=== PATIENT | female | born 1985 | race Two or more races ===

== ENCOUNTER 2021-07-13 06:17 | Emergency (ER) | payer MEDICAID ==
[~2021-07-13] VITALS: Ht 172.7 cm; Wt 54.5 kg
[2021-07-13 07:04] LABS: BASOPHILS % (AUTO) 1.3 % (0.0-2.0); EOSINOPHILS % (AUTO) 2.6 % (1.0-6.0); HEMATOCRIT 41.3 % (36-46); HEMOGLOBIN 13.7 g/dL (12.0-16.0); LYMPHOCYTES # (AUTO) 1.1 K/uL (1.0-4.8); MEAN CORPUSCULAR HEMOGLOBIN 29.9 pg (26.0-34.0); MEAN CORPUSCULAR HGB CONC 33.1 G/dL (31.0-37.0); MEAN CORPUSCULAR VOLUME 90 fL (80-100); MONOCYTES # (AUTO) 0.4 K/uL (0.1-1.0); MONOCYTES % (AUTO) 7.9 % (2.0-9.0); NEUTROPHILS # (AUTO) 3.3 K/uL (1.8-7.7); NEUTROPHILS % (AUTO) 66.2 % (40.0-70.0); PLATELET COUNT (AUTO) 277 K/uL (150-450); RED BLOOD CELL COUNT(AUTO) 4.57 MIL/uL (4.00-5.20)
[2021-07-13 07:10] LABS: ANION GAP 8 mmol/L (8-16); CARBON DIOXIDE 29 mmol/L (22-29); CHLORIDE 106 mmol/L (98-107); CREATININE 0.69 mg/dL (0.60-1.30); GLOMERULAR FILTR. RATE CALC > 60 mL/min (>60); GLUCOSE,RANDOM 94 mg/dL (70-110); POTASSIUM 4.6 mmol/L (3.5-5.1); SODIUM SERUM 143 mmol/L (136-145); UREA NITROGEN, BLOOD 10 mg/dL (7-18)
[2021-07-13 08:00] VITALS: BP 120/80
== END 2021-07-13 08:03 | disposition home or self-care (01) ==
LOC: EMS 06:17
DX: F41.9 Anxiety disorder, unspecified (principal)
CPT/HCPCS: 71045; 80048; 85025; 93005; 99285; 36415-L1; 36415-TC

== ENCOUNTER 2021-07-19 00:57 | Inpatient (IN) | payer MEDICAID ==
[~2021-07-19] VITALS: Ht 172.7 cm; Wt 53.5 kg
[2021-07-19] MEDS: LORazepam 2 MG/ML VIAL IM ONE ×2 (01:55→02:13)
[2021-07-19 02:03] LABS: BASOPHILS % (AUTO) 0.8 % (0.0-2.0); HEMATOCRIT 40.9 % (36-46); HEMOGLOBIN 13.4 g/dL (12.0-16.0); LYMPHOCYTES # (AUTO) 1.5 K/uL (1.0-4.8); LYMPHOCYTES % (AUTO) 15.7 % (22.0-44.0); MEAN CORPUSCULAR HEMOGLOBIN 29.8 pg (26.0-34.0); MEAN CORPUSCULAR HGB CONC 32.8 G/dL (31.0-37.0); MEAN CORPUSCULAR VOLUME 91 fL (80-100); MONOCYTES # (AUTO) 0.7 K/uL (0.1-1.0); MONOCYTES % (AUTO) 7.4 % (2.0-9.0); NEUTROPHILS # (AUTO) 7.1 K/uL (1.8-7.7); NEUTROPHILS % (AUTO) 75.1 % (40.0-70.0); PLATELET COUNT (AUTO) 270 K/uL (150-450); RED BLOOD CELL COUNT(AUTO) 4.51 MIL/uL (4.00-5.20); RED CELL DISTRIBUTION WIDTH 13.7 % (11.5-14.5)
[2021-07-19 02:09] LABS: ANION GAP 9 mmol/L (8-16); CALCIUM, TOTAL 8.7 mg/dL (8.8-10.5); CARBON DIOXIDE 25 mmol/L (22-29); CHLORIDE 105 mmol/L (98-107); CREATININE 0.68 mg/dL (0.60-1.30); GLOMERULAR FILTR. RATE CALC > 60 mL/min (>60); GLUCOSE,RANDOM 154 mg/dL (70-110); POTASSIUM 3.9 mmol/L (3.5-5.1); SODIUM SERUM 139 mmol/L (136-145); UREA NITROGEN, BLOOD 12 mg/dL (7-18)
[2021-07-19 02:15] LABS: ALANINE AMINOTRANSFERASE 29 U/L (12-78); ALBUMIN 3.9 g/dL (3.4-5.0); ALKALINE PHOSPHATASE 72 U/L (46-116); ASPARTATE AMINOTRANSFERASE 16 U/L (15-37); BILIRUBIN,TOTAL 0.2 mg/dL (0.1-1.0)
[2021-07-19] MEDS ORDERED: LORazepam 2 MG TABLET PO ONE (02:15)
[2021-07-19 02:20] LABS: HCG,QUANTITATIVE 1 mIU/mL (0-6)
[2021-07-19 02:51] LABS: COVID AG,FIA SOURCE NASOPHARYNGEAL
[2021-07-19 03:13] LABS: APPEARANCE,URINE CLEAR (CLEAR); BILIRUBIN,URINE NEGATIVE (NEGATIVE); GLUCOSE, URINE (UA) NEGATIVE (NEGATIVE); KETONES,URINE NEGATIVE (NEGATIVE); LEUKOCYTE ESTERASE ,URINE NEGATIVE (NEGATIVE); NITRATE,URINE NEGATIVE (NEGATIVE); OCCULT BLOOD,URINE NEGATIVE (NEGATIVE); PH,URINE 5.5 (5.0-8.0); PROTEIN,URINE NEGATIVE (NEGATIVE); UROBILINOGEN,URINE 0.2 mg/dL (<=1.0)
[2021-07-19 03:18] LABS: AMPHET/METH SCREEN,URINE NEGATIVE (NEGATIVE); BARBITURATE SCREEN, URINE NEGATIVE (NEGATIVE); BENZODIAZEPINES SCREEN,URINE NEGATIVE (NEGATIVE); CANNABINOID SCREEN,URINE NEGATIVE (NEGATIVE); COCAINE SCREEN,URINE NEGATIVE (NEGATIVE); METHADONE SCREEN, URINE NEGATIVE (NEGATIVE); OPIATE SCREEN,URINE NEGATIVE (NEGATIVE)
[2021-07-19 03:25] LABS: PHENCYCLIDINE SCREEN,URINE NEGATIVE (NEGATIVE)
[2021-07-19] MEDS: LORazepam 2 MG TABLET PO PRN (12:41)
[2021-07-19 20:38] VITALS: BP 107/71
[2021-07-20 04:07] VITALS: BP 129/98
[2021-07-20] MEDS ORDERED: CloNIDine HCL 0.1 MG TABLET PO PRN (08:00)
[2021-07-20] MEDS ORDERED: DOCUSATE SODIUM 100 MG CAPSULE PO PRN (08:00)
[2021-07-20] MEDS ORDERED: IBUPROFEN 600 MG TABLET PO PRN (08:00)
[2021-07-20] MEDS ORDERED: LOPERAMIDE HCL 2 MG CAPSULE PO PRN (08:00)
[2021-07-20] MEDS ORDERED: ALBUTEROL SULFATE HFA 90 MCG/PUFF 8 GM INHALER IH PRN (08:00)
[2021-07-20] MEDS ORDERED: PETROLATUM,WHITE 28 GM JELLY TP PRN (08:00)
[2021-07-20] MEDS ORDERED: MAG HYDROX/AL HYDROX/SIMETH ES 30 ML SUSPENSION UDCUP PO PRN (08:00)
[2021-07-20] MEDS ORDERED: MAGNESIUM HYDROXIDE SUSPENSION 30 ML UDCUP PO PRN (08:00)
[2021-07-20] MEDS ORDERED: OMEPRAZOLE 20 MG CAPSULE PO PRN (08:00)
[2021-07-20] MEDS ORDERED: BENZOCAINE/MENTHOL LOZENGE PO PRN (08:00)
[2021-07-20] MEDS ORDERED: BACITRACIN 28 GM OINTMENT TP PRN (08:00)
[2021-07-20] MEDS ORDERED: ACETAMINOPHEN 325 MG TABLET PO PRN (08:00)
[2021-07-20 09:41] VITALS: BP 137/87
[2021-07-20 16:06] LABS: MAGNESIUM 2.2 mg/dL (1.80-2.40); PHOSPHORUS 3.5 mg/dL (2.5-4.9)
[2021-07-20 16:37] VITALS: BP 109/83
[2021-07-20 23:55] VITALS: BP 116/88
[2021-07-20] MEDS: LORazepam 2 MG TABLET PO PRN (23:57)
[2021-07-20] MEDS: QUEtiapine FUMARATE 100 MG TABLET PO PRN (23:57)
[2021-07-20] MEDS: ZOLPIDEM TARTRATE 10 MG TABLET PO PRN (23:57)
[2021-07-21] MEDS: MULTIVITAMINS WITH MINERALS, THERAPEUTIC TABLET PO SCH (08:36)
[2021-07-21] MEDS: THIAMINE 100 MG TABLET PO SCH (08:36)
[2021-07-21 08:44] VITALS: BP 125/70
[2021-07-21 16:23] VITALS: BP 115/71
[2021-07-21] MEDS: RisperiDONE 1 MG TABLET PO SCH (16:56)
[2021-07-21] MEDS: ONDANSETRON HCL 4 MG TABLET PO PRN (21:05)
[2021-07-21] MEDS: LORazepam 2 MG TABLET PO PRN (21:05)
[2021-07-22] MEDS: ONDANSETRON HCL 4 MG TABLET PO PRN (07:10)
[2021-07-22 08:16] VITALS: BP 108/89
[2021-07-22] MEDS: THIAMINE 100 MG TABLET PO SCH (09:00)
[2021-07-22] MEDS: MULTIVITAMINS WITH MINERALS, THERAPEUTIC TABLET PO SCH (09:00)
[2021-07-22] MEDS: RisperiDONE 1 MG TABLET PO SCH (09:00)
[2021-07-22 16:10] VITALS: BP 133/74
[2021-07-22] MEDS: RisperiDONE 3 MG TABLET PO SCH (17:00)
[2021-07-23 08:31] VITALS: BP 118/76
[2021-07-23] MEDS: RisperiDONE 3 MG TABLET PO SCH ×2 (08:56→16:30)
[2021-07-23] MEDS: MULTIVITAMINS WITH MINERALS, THERAPEUTIC TABLET PO SCH (08:56)
[2021-07-23] MEDS: THIAMINE 100 MG TABLET PO SCH (08:56)
[2021-07-23] MEDS ORDERED: HALOPERIDOL LACTATE 5 MG/ML VIAL IM ONE (13:00)
[2021-07-23] MEDS ORDERED: LORazepam 2 MG/ML VIAL IM ONE (13:00)
[2021-07-23 16:21] VITALS: BP 137/89
[2021-07-24] MEDS: THIAMINE 100 MG TABLET PO SCH (08:30)
[2021-07-24] MEDS: MULTIVITAMINS WITH MINERALS, THERAPEUTIC TABLET PO SCH (08:30)
[2021-07-24] MEDS: RisperiDONE 3 MG TABLET PO SCH ×2 (08:30→16:06)
[2021-07-24 08:36] VITALS: BP 162/99
[2021-07-24 16:00] VITALS: BP 110/69
[2021-07-24] MEDS: ZOLPIDEM TARTRATE 10 MG TABLET PO PRN (20:44)
[2021-07-25 00:20] VITALS: BP 120/80
[2021-07-25] MEDS: QUEtiapine FUMARATE 100 MG TABLET PO PRN (00:37)
[2021-07-25 08:00] VITALS: BP 132/82
[2021-07-25] MEDS: THIAMINE 100 MG TABLET PO SCH (08:17)
[2021-07-25] MEDS: RisperiDONE 3 MG TABLET PO SCH (08:17)
[2021-07-25] MEDS: MULTIVITAMINS WITH MINERALS, THERAPEUTIC TABLET PO SCH (08:17)
[2021-07-25 16:30] VITALS: BP 119/91
[2021-07-25] MEDS: QUEtiapine FUMARATE 300 MG TABLET PO SCH (20:04)
[2021-07-26 08:59] LABS: COVID AG,FIA SOURCE NASOPHARYNGEAL
[2021-07-26] MEDS: MULTIVITAMINS WITH MINERALS, THERAPEUTIC TABLET PO SCH (09:08)
[2021-07-26] MEDS: THIAMINE 100 MG TABLET PO SCH (09:38)
[2021-07-26 09:42] VITALS: BP 145/94
[2021-07-26 16:26] VITALS: BP 107/65
[2021-07-26 20:55] VITALS: BP 82/57
[2021-07-26] MEDS: QUEtiapine FUMARATE 300 MG TABLET PO SCH (21:07)
[2021-07-26 21:10] VITALS: BP 118/78
[2021-07-26 21:18] LABS: GLUCOMETER DEV NAME(LOC) 3EX.; GLUCOSE,POINT OF CARE 130 MG/DL (70-110)
[2021-07-27 05:08] VITALS: BP 122/80
[2021-07-27 08:00] VITALS: BP 141/99
[2021-07-27] MEDS: MULTIVITAMINS WITH MINERALS, THERAPEUTIC TABLET PO SCH (09:09)
[2021-07-27] MEDS: THIAMINE 100 MG TABLET PO SCH (09:09)
[2021-07-27 17:46] VITALS: BP 118/72
[2021-07-27 20:00] VITALS: BP 138/70
[2021-07-27] MEDS: QUEtiapine FUMARATE 200 MG TABLET PO SCH (20:14)
[2021-07-27] MEDS: LURASIDONE HCL 80 MG TABLET PO SCH (20:14)
[2021-07-28 08:00] VITALS: BP 108/69
[2021-07-28] MEDS: THIAMINE 100 MG TABLET PO SCH (09:23)
[2021-07-28] MEDS: MULTIVITAMINS WITH MINERALS, THERAPEUTIC TABLET PO SCH (09:24)
[2021-07-28 16:12] VITALS: BP 108/72
[2021-07-28] MEDS: LURASIDONE HCL 80 MG TABLET PO SCH (20:14)
[2021-07-28] MEDS: QUEtiapine FUMARATE 200 MG TABLET PO SCH (20:14)
[2021-07-29 08:00] VITALS: BP 130/66
[2021-07-29] MEDS: THIAMINE 100 MG TABLET PO SCH (09:40)
[2021-07-29] MEDS: MULTIVITAMINS WITH MINERALS, THERAPEUTIC TABLET PO SCH (09:40)
[2021-07-29] MEDS ORDERED: QUET200T PO (10:59)
[2021-07-29] MEDS ORDERED: LURA80TA2 PO (10:59)
[2021-07-29] MEDS ORDERED: THIA100T80 PO (10:59)
[2021-07-29] MEDS ORDERED: MULT-1239 PO (10:59)
== END 2021-07-29 13:00 | disposition home or self-care (01) | DRG 750 ==
LOC: EMS 00:59 → 3EI 18:59
PROVIDERS: ADMIT Psychiatry & Neurology Psychiatry; ATTEND Psychiatry & Neurology Psychiatry
DX: F20.0 Paranoid schizophrenia (principal); F17.200 Nicotine dependence, unspecified, uncomplicated; F32.A Depression, unspecified; F43.10 Post-traumatic stress disorder, unspecified; G47.00 Insomnia, unspecified; K59.00 Constipation, unspecified; Z20.822 Contact with and (suspected) exposure to COVID-19; Z71.6 Tobacco abuse counseling
CPT/HCPCS: 80053; 80061; 81003; 82962; 83036; 83735; 84100; 84702; 85025; 99285; G0480; J1630; J2060; Q0162

== ENCOUNTER 2021-08-04 18:55 | Inpatient (IN) | payer MEDICAID ==
[~2021-08-04] VITALS: Ht 165.1 cm; Wt 58.8 kg
[~2021-08-04 18:55] MED LIST: LURA80TA2 PO; MULT-1239 PO; QUET200T PO; THIA100T80 PO
[2021-08-04 20:03] LABS: EOSINOPHILS % (AUTO) 2.5 % (1.0-6.0); HEMATOCRIT 37.5 % (36-46); HEMOGLOBIN 12.6 g/dL (12.0-16.0); LYMPHOCYTES # (AUTO) 1.2 K/uL (1.0-4.8); LYMPHOCYTES % (AUTO) 13.8 % (22.0-44.0); MEAN CORPUSCULAR HEMOGLOBIN 30.3 pg (26.0-34.0); MEAN CORPUSCULAR HGB CONC 33.6 G/dL (31.0-37.0); MEAN CORPUSCULAR VOLUME 90 fL (80-100); MONOCYTES # (AUTO) 0.8 K/uL (0.1-1.0); MONOCYTES % (AUTO) 9.4 % (2.0-9.0); NEUTROPHILS # (AUTO) 6.5 K/uL (1.8-7.7); NEUTROPHILS % (AUTO) 73.3 % (40.0-70.0); PLATELET COUNT (AUTO) 235 K/uL (150-450); RED BLOOD CELL COUNT(AUTO) 4.16 MIL/uL (4.00-5.20)
[2021-08-04 20:12] LABS: ANION GAP 8 mmol/L (8-16); CALCIUM, TOTAL 8.8 mg/dL (8.8-10.5); CARBON DIOXIDE 26 mmol/L (22-29); CHLORIDE 107 mmol/L (98-107); CREATININE 0.72 mg/dL (0.60-1.30); GLOMERULAR FILTR. RATE CALC > 60 mL/min (>60); GLUCOSE,RANDOM 104 mg/dL (70-110); POTASSIUM 3.7 mmol/L (3.5-5.1); SODIUM SERUM 141 mmol/L (136-145); UREA NITROGEN, BLOOD 17 mg/dL (7-18)
[2021-08-04 20:15] LABS: COVID AG,FIA SOURCE NASAL SWAB
[2021-08-04 20:18] LABS: ALANINE AMINOTRANSFERASE 23 U/L (12-78); ALBUMIN 3.4 g/dL (3.4-5.0); ALKALINE PHOSPHATASE 86 U/L (46-116); ASPARTATE AMINOTRANSFERASE 23 U/L (15-37); BILIRUBIN,TOTAL 0.2 mg/dL (0.1-1.0); TOTAL PROTEIN, SERUM 6.6 g/dL (6.4-8.2)
[2021-08-04 20:42] LABS: ACETAMINOPHEN < 2 mcg/mL (10-30)
[2021-08-05 14:27] LABS: APPEARANCE,URINE CLOUDY (CLEAR); BILIRUBIN,URINE NEGATIVE (NEGATIVE); GLUCOSE, URINE (UA) NEGATIVE (NEGATIVE); KETONES,URINE NEGATIVE (NEGATIVE); LEUKOCYTE ESTERASE ,URINE NEGATIVE (NEGATIVE); NITRATE,URINE NEGATIVE (NEGATIVE); OCCULT BLOOD,URINE NEGATIVE (NEGATIVE); PH,URINE 7.5 (5.0-8.0); PROTEIN,URINE NEGATIVE (NEGATIVE); UROBILINOGEN,URINE 0.2 mg/dL (<=1.0)
[2021-08-05 14:32] LABS: AMPHET/METH SCREEN,URINE NEGATIVE (NEGATIVE); BARBITURATE SCREEN, URINE NEGATIVE (NEGATIVE); BENZODIAZEPINES SCREEN,URINE NEGATIVE (NEGATIVE); CANNABINOID SCREEN,URINE NEGATIVE (NEGATIVE); COCAINE SCREEN,URINE NEGATIVE (NEGATIVE); METHADONE SCREEN, URINE NEGATIVE (NEGATIVE); OPIATE SCREEN,URINE NEGATIVE (NEGATIVE); PHENCYCLIDINE SCREEN,URINE NEGATIVE (NEGATIVE)
[2021-08-05] MEDS: LORazepam 2 MG TABLET PO PRN (15:14)
[2021-08-06] MEDS ORDERED: LOPERAMIDE HCL 2 MG CAPSULE PO PRN (06:30)
[2021-08-06] MEDS ORDERED: ACETAMINOPHEN 325 MG TABLET PO PRN (06:30)
[2021-08-06] MEDS ORDERED: ALBUTEROL SULFATE HFA 90 MCG/PUFF 8 GM INHALER IH PRN (06:30)
[2021-08-06] MEDS ORDERED: PETROLATUM,WHITE 28 GM JELLY TP PRN (06:30)
[2021-08-06] MEDS ORDERED: IBUPROFEN 600 MG TABLET PO PRN (06:30)
[2021-08-06] MEDS ORDERED: DOCUSATE SODIUM 100 MG CAPSULE PO PRN (06:30)
[2021-08-06] MEDS ORDERED: OMEPRAZOLE 20 MG CAPSULE PO PRN (06:30)
[2021-08-06] MEDS ORDERED: ONDANSETRON HCL 4 MG TABLET PO PRN (06:30)
[2021-08-06] MEDS ORDERED: MAGNESIUM HYDROXIDE SUSPENSION 30 ML UDCUP PO PRN (06:30)
[2021-08-06] MEDS ORDERED: CloNIDine HCL 0.1 MG TABLET PO PRN (06:30)
[2021-08-06] MEDS ORDERED: MAG HYDROX/AL HYDROX/SIMETH ES 30 ML SUSPENSION UDCUP PO PRN (06:30)
[2021-08-06] MEDS ORDERED: BACITRACIN 28 GM OINTMENT TP PRN (06:30)
[2021-08-06] MEDS ORDERED: BENZOCAINE/MENTHOL LOZENGE PO PRN (06:30)
[2021-08-06 08:00] VITALS: BP 136/87
[2021-08-06 16:50] VITALS: BP 90/58
[2021-08-06] MEDS: QUEtiapine FUMARATE 200 MG TABLET PO SCH (20:02)
[2021-08-07 08:40] VITALS: BP 150/94
[2021-08-07] MEDS ORDERED: QUEtiapine FUMARATE 200 MG TABLET PO SCH (09:00)
[2021-08-07 16:00] VITALS: BP 120/81
[2021-08-07] MEDS: QUEtiapine FUMARATE 200 MG TABLET PO SCH (20:07)
[2021-08-07] MEDS: ZOLPIDEM TARTRATE 10 MG TABLET PO PRN (20:45)
[2021-08-07] MEDS: LORazepam 2 MG TABLET PO PRN (23:50)
[2021-08-07] MEDS: HALOPERIDOL 5 MG TABLET PO PRN (23:50)
[2021-08-08] MEDS: QUEtiapine FUMARATE 200 MG TABLET PO SCH ×2 (08:22→20:03)
[2021-08-08 08:57] VITALS: BP 93/66
[2021-08-08 17:37] VITALS: BP 124/77
[2021-08-09] MEDS: QUEtiapine FUMARATE 200 MG TABLET PO SCH ×2 (08:36→20:02)
[2021-08-09 08:58] VITALS: BP 107/69
[2021-08-09] MEDS ORDERED: DiphenhydrAMINE HCL 50 MG/ML VIAL ONE (10:44)
[2021-08-09] MEDS ORDERED: HALOPERIDOL LACTATE 5 MG/ML VIAL ONE (10:44)
[2021-08-09] MEDS ORDERED: LORazepam 2 MG/ML VIAL ONE (10:44)
[2021-08-09] MEDS ORDERED: HALOPERIDOL LACTATE 5 MG/ML VIAL IM ONE (10:45)
[2021-08-09] MEDS ORDERED: LORazepam 2 MG/ML VIAL IM ONE (10:45)
[2021-08-09] MEDS: DiphenhydrAMINE HCL 50 MG/ML VIAL IM ONE ×2 (10:53→10:56)
[2021-08-09 16:11] VITALS: BP 111/75
[2021-08-09 20:11] VITALS: BP 124/80
[2021-08-10] MEDS: QUEtiapine FUMARATE 200 MG TABLET PO SCH ×2 (08:09→20:07)
[2021-08-10 08:28] LABS: COVID AG,FIA SOURCE NASAL SWAB
[2021-08-10 09:38] VITALS: BP 127/85
[2021-08-10 16:05] VITALS: BP 128/78
[2021-08-10] MEDS: ZOLPIDEM TARTRATE 10 MG TABLET PO PRN (20:27)
[2021-08-11] MEDS: LORazepam 2 MG TABLET PO PRN (08:18)
[2021-08-11] MEDS: RisperiDONE 2 MG TABLET PO SCH ×2 (08:19→16:17)
[2021-08-11] MEDS: QUEtiapine FUMARATE 200 MG TABLET PO SCH ×2 (08:19→20:40)
[2021-08-11] MEDS: DIVALPROEX SODIUM 500 MG DR TABLET PO SCH ×2 (08:20→16:16)
[2021-08-11 08:53] VITALS: BP 142/64
[2021-08-11 16:18] VITALS: BP 107/68
[2021-08-12] MEDS: QUEtiapine FUMARATE 200 MG TABLET PO SCH ×2 (08:12→20:36)
[2021-08-12] MEDS: LORazepam 2 MG TABLET PO PRN ×2 (08:12→15:53)
[2021-08-12] MEDS: HALOPERIDOL 5 MG TABLET PO PRN ×2 (08:12→15:53)
[2021-08-12] MEDS: RisperiDONE 2 MG TABLET PO SCH ×2 (08:12→15:53)
[2021-08-12] MEDS: DIVALPROEX SODIUM 500 MG DR TABLET PO SCH ×2 (08:12→15:53)
[2021-08-12 08:46] VITALS: BP 129/94
[2021-08-12 16:14] VITALS: BP 110/60
[2021-08-13] MEDS: QUEtiapine FUMARATE 200 MG TABLET PO SCH ×2 (08:19→21:06)
[2021-08-13] MEDS: RisperiDONE 2 MG TABLET PO SCH ×2 (08:19→16:21)
[2021-08-13] MEDS: DIVALPROEX SODIUM 500 MG DR TABLET PO SCH ×2 (08:20→16:21)
[2021-08-13 08:35] VITALS: BP 127/76
[2021-08-13 16:05] VITALS: BP 123/76
[2021-08-13] MEDS: HALOPERIDOL 5 MG TABLET PO PRN (16:21)
[2021-08-13] MEDS: LORazepam 2 MG TABLET PO PRN (16:21)
[2021-08-14 08:06] VITALS: BP 119/78
[2021-08-14] MEDS: QUEtiapine FUMARATE 200 MG TABLET PO SCH ×2 (09:07→20:49)
[2021-08-14] MEDS: HALOPERIDOL 5 MG TABLET PO PRN ×2 (09:07→16:33)
[2021-08-14] MEDS: RisperiDONE 2 MG TABLET PO SCH ×2 (09:07→16:33)
[2021-08-14] MEDS: LORazepam 2 MG TABLET PO PRN ×2 (09:07→16:33)
[2021-08-14] MEDS: DIVALPROEX SODIUM 500 MG DR TABLET PO SCH ×2 (09:07→16:33)
[2021-08-14 16:52] VITALS: BP 122/85
[2021-08-15] MEDS: LORazepam 2 MG TABLET PO PRN ×3 (04:22→16:21)
[2021-08-15] MEDS: HALOPERIDOL 5 MG TABLET PO PRN ×2 (08:11→16:21)
[2021-08-15] MEDS: DIVALPROEX SODIUM 500 MG DR TABLET PO SCH ×2 (08:12→16:30)
[2021-08-15] MEDS: RisperiDONE 3 MG TABLET PO SCH ×2 (08:12→16:30)
[2021-08-15] MEDS: QUEtiapine FUMARATE 200 MG TABLET PO SCH ×2 (08:12→20:48)
[2021-08-15 08:48] VITALS: BP 124/86
[2021-08-15 16:56] VITALS: BP 136/85
[2021-08-16] MEDS: LORazepam 2 MG TABLET PO PRN ×3 (05:15→16:12)
[2021-08-16] MEDS: RisperiDONE 3 MG TABLET PO SCH ×2 (08:01→16:12)
[2021-08-16] MEDS: DIVALPROEX SODIUM 500 MG DR TABLET PO SCH ×3 (08:01→16:12)
[2021-08-16] MEDS: QUEtiapine FUMARATE 200 MG TABLET PO SCH ×2 (08:01→20:36)
[2021-08-16] MEDS: HALOPERIDOL 5 MG TABLET PO PRN ×2 (08:01→16:12)
[2021-08-16 08:55] VITALS: BP 110/63
[2021-08-16 16:08] VITALS: BP 127/80
[2021-08-16 16:12] VITALS: BP 127/80
[2021-08-17] MEDS: LORazepam 2 MG TABLET PO PRN (07:03)
[2021-08-17] MEDS: RisperiDONE 3 MG TABLET PO SCH (08:31)
[2021-08-17] MEDS: DIVALPROEX SODIUM 500 MG DR TABLET PO SCH ×2 (08:31→13:20)
[2021-08-17] MEDS: QUEtiapine FUMARATE 200 MG TABLET PO SCH (08:31)
[2021-08-17] MEDS: HALOPERIDOL 5 MG TABLET PO PRN (08:32)
[2021-08-17 09:31] VITALS: BP 132/84
[2021-08-17] MEDS ORDERED: DIVA-112 PO (13:05)
[2021-08-17] MEDS ORDERED: QUET200T PO (13:05)
[2021-08-17] MEDS ORDERED: RISP3TAB35 PO (13:05)
== END 2021-08-17 13:47 | disposition home or self-care (01) | DRG 750 ==
LOC: EMS 18:58 → 3EI 08-05 00:35 → 3EC 08-10 19:35
PROVIDERS: ADMIT Psychiatry & Neurology Psychiatry; ATTEND Psychiatry & Neurology Psychiatry
DX: F25.9 Schizoaffective disorder, unspecified (principal); F32.A Depression, unspecified; Z20.822 Contact with and (suspected) exposure to COVID-19; F43.10 Post-traumatic stress disorder, unspecified; G47.00 Insomnia, unspecified; K59.00 Constipation, unspecified; Z91.51 Personal history of suicidal behavior
CPT/HCPCS: 80053; 80061; 80164; 81003; 84703; 85025; 87081; 93005; 99285; G0480; G0481; J1200; J1630; J2060

== ENCOUNTER 2021-08-19 12:58 | Inpatient (IN) | payer MEDICAID ==
[~2021-08-19] VITALS: Ht 167.6 cm; Wt 60.5 kg
[~2021-08-19 12:58] MED LIST changes: +DIVA-112 PO; -LURA80TA2 PO; -MULT-1239 PO; +RISP3TAB35 PO; -THIA100T80 PO
[2021-08-19 13:36] LABS: BASOPHILS % (AUTO) 1.2 % (0.0-2.0); EOSINOPHILS % (AUTO) 3.3 % (1.0-6.0); HEMATOCRIT 42.2 % (36-46); HEMOGLOBIN 14.4 g/dL (12.0-16.0); LYMPHOCYTES # (AUTO) 1.3 K/uL (1.0-4.8); LYMPHOCYTES % (AUTO) 18.2 % (22.0-44.0); MEAN CORPUSCULAR HEMOGLOBIN 30.2 pg (26.0-34.0); MEAN CORPUSCULAR HGB CONC 34.1 G/dL (31.0-37.0); MEAN CORPUSCULAR VOLUME 88 fL (80-100); MONOCYTES # (AUTO) 0.7 K/uL (0.1-1.0); MONOCYTES % (AUTO) 9.9 % (2.0-9.0); NEUTROPHILS % (AUTO) 67.4 % (40.0-70.0); PLATELET COUNT (AUTO) 312 K/uL (150-450); RED BLOOD CELL COUNT(AUTO) 4.78 MIL/uL (4.00-5.20); RED CELL DISTRIBUTION WIDTH 13.7 % (11.5-14.5)
[2021-08-19 13:48] LABS: ANION GAP 5 mmol/L (8-16); CALCIUM, TOTAL 9.3 mg/dL (8.8-10.5); CARBON DIOXIDE 30 mmol/L (22-29); CHLORIDE 103 mmol/L (98-107); CREATININE 0.81 mg/dL (0.60-1.30); GLOMERULAR FILTR. RATE CALC > 60 mL/min (>60); GLUCOSE,RANDOM 102 mg/dL (70-110); POTASSIUM 3.9 mmol/L (3.5-5.1); SODIUM SERUM 138 mmol/L (136-145); UREA NITROGEN, BLOOD 13 mg/dL (7-18)
[2021-08-19 13:57] LABS: ALANINE AMINOTRANSFERASE 23 U/L (12-78); ALBUMIN 3.8 g/dL (3.4-5.0); ALKALINE PHOSPHATASE 101 U/L (46-116); ASPARTATE AMINOTRANSFERASE 18 U/L (15-37); BILIRUBIN,TOTAL 0.2 mg/dL (0.1-1.0); HCG,QUANTITATIVE < 1 mIU/mL (0-6); TOTAL PROTEIN, SERUM 7.4 g/dL (6.4-8.2)
[2021-08-19 17:07] LABS: COVID AG,FIA SOURCE NASOPHARYNGEAL
[2021-08-19 17:27] LABS: AMPHET/METH SCREEN,URINE NEGATIVE (NEGATIVE); BARBITURATE SCREEN, URINE NEGATIVE (NEGATIVE); BENZODIAZEPINES SCREEN,URINE NEGATIVE (NEGATIVE); CANNABINOID SCREEN,URINE NEGATIVE (NEGATIVE); COCAINE SCREEN,URINE NEGATIVE (NEGATIVE); METHADONE SCREEN, URINE NEGATIVE (NEGATIVE); OPIATE SCREEN,URINE NEGATIVE (NEGATIVE)
[2021-08-19 17:29] LABS: PHENCYCLIDINE SCREEN,URINE NEGATIVE (NEGATIVE)
[2021-08-19 18:49] LABS: APPEARANCE,URINE CLOUDY (CLEAR); BILIRUBIN,URINE NEGATIVE (NEGATIVE); GLUCOSE, URINE (UA) NEGATIVE (NEGATIVE); KETONES,URINE NEGATIVE (NEGATIVE); LEUKOCYTE ESTERASE ,URINE NEGATIVE (NEGATIVE); NITRATE,URINE NEGATIVE (NEGATIVE); OCCULT BLOOD,URINE NEGATIVE (NEGATIVE); PH,URINE 7.5 (5.0-8.0); PROTEIN,URINE NEGATIVE (NEGATIVE); UROBILINOGEN,URINE 0.2 mg/dL (<=1.0)
[2021-08-19] MEDS: HALOPERIDOL 5 MG TABLET PO PRN (22:51)
[2021-08-19] MEDS: LORazepam 2 MG TABLET PO PRN (23:59)
[2021-08-20 02:54] LABS: CHOL/HDL RATIO 2.3 (3.9-5.7); CHOLESTEROL 188 mg/dL (131-200); HDL CHOLESTEROL 82 mg/dL (40-60); LDL CHOL (CALC.) 91 mg/dL (0-130); TRIGLYCERIDES 76 mg/dL (15-150)
[2021-08-20] MEDS: LORazepam 2 MG TABLET PO PRN ×2 (08:29→15:18)
[2021-08-20] MEDS: HALOPERIDOL 5 MG TABLET PO PRN (15:18)
[2021-08-20] MEDS ORDERED: LORazepam 2 MG/ML VIAL IM ONE (15:30)
[2021-08-20] MEDS ORDERED: HALOPERIDOL LACTATE 5 MG/ML VIAL IM ONE (15:30)
[2021-08-20 17:24] VITALS: BP 113/71
[2021-08-20] MEDS ORDERED: INFLUENZA VIRUS VACCINE QVS 2021-22 (6MO+)/PF 60 MCG/0.5 ML SYRINGE IM. ONE (18:30)
[2021-08-20] MEDS ORDERED: BACITRACIN 28 GM OINTMENT TP PRN (22:45)
[2021-08-20] MEDS ORDERED: LOPERAMIDE HCL 2 MG CAPSULE PO PRN (22:45)
[2021-08-20] MEDS ORDERED: ALBUTEROL SULFATE HFA 90 MCG/PUFF 8 GM INHALER IH PRN (22:45)
[2021-08-20] MEDS ORDERED: MAGNESIUM HYDROXIDE SUSPENSION 30 ML UDCUP PO PRN (22:45)
[2021-08-20] MEDS ORDERED: CloNIDine HCL 0.1 MG TABLET PO PRN (22:45)
[2021-08-20] MEDS ORDERED: BENZOCAINE/MENTHOL LOZENGE PO PRN (22:45)
[2021-08-20] MEDS ORDERED: MAG HYDROX/AL HYDROX/SIMETH ES 30 ML SUSPENSION UDCUP PO PRN (22:45)
[2021-08-20] MEDS ORDERED: OMEPRAZOLE 20 MG CAPSULE PO PRN (22:45)
[2021-08-20] MEDS ORDERED: ONDANSETRON HCL 4 MG TABLET PO PRN (22:45)
[2021-08-20] MEDS ORDERED: PETROLATUM,WHITE 28 GM JELLY TP PRN (22:45)
[2021-08-20] MEDS ORDERED: ACETAMINOPHEN 325 MG TABLET PO PRN (22:45)
[2021-08-20] MEDS ORDERED: DOCUSATE SODIUM 100 MG CAPSULE PO PRN (22:45)
[2021-08-21 06:55] VITALS: BP 115/83
[2021-08-21] MEDS: IBUPROFEN 600 MG TABLET PO PRN ×2 (06:59→09:18)
[2021-08-21 09:18] VITALS: BP 113/75
[2021-08-21] MEDS: HALOPERIDOL 5 MG TABLET PO PRN ×2 (09:18→14:54)
[2021-08-21] MEDS: LORazepam 2 MG TABLET PO PRN ×2 (10:26→14:54)
[2021-08-21] MEDS: DIVALPROEX SODIUM 500 MG DR TABLET PO SCH ×2 (13:01→17:37)
[2021-08-21] MEDS: QUEtiapine FUMARATE 200 MG TABLET PO SCH ×2 (13:01→20:28)
[2021-08-21 16:00] VITALS: BP 131/94
[2021-08-21] MEDS: RisperiDONE 3 MG TABLET PO SCH (18:05)
[2021-08-21 20:30] VITALS: BP 104/70
[2021-08-22 09:27] VITALS: BP 130/87
[2021-08-22] MEDS: HALOPERIDOL 5 MG TABLET PO PRN ×2 (10:40→18:05)
[2021-08-22] MEDS: DIVALPROEX SODIUM 500 MG DR TABLET PO SCH ×3 (10:40→16:29)
[2021-08-22] MEDS: RisperiDONE 3 MG TABLET PO SCH ×2 (10:40→16:29)
[2021-08-22] MEDS: LORazepam 2 MG TABLET PO PRN ×2 (10:40→18:05)
[2021-08-22] MEDS: QUEtiapine FUMARATE 200 MG TABLET PO SCH ×2 (10:40→20:21)
[2021-08-22 16:43] VITALS: BP 123/88
[2021-08-23] MEDS: HALOPERIDOL 5 MG TABLET PO PRN ×2 (05:23→17:50)
[2021-08-23 05:24] VITALS: BP 112/75
[2021-08-23 08:00] VITALS: BP 146/95
[2021-08-23] MEDS: DIVALPROEX SODIUM 500 MG DR TABLET PO SCH ×3 (08:31→16:33)
[2021-08-23] MEDS: QUEtiapine FUMARATE 200 MG TABLET PO SCH ×2 (08:31→20:38)
[2021-08-23] MEDS: LORazepam 2 MG TABLET PO PRN ×2 (08:31→17:50)
[2021-08-23] MEDS: RisperiDONE 3 MG TABLET PO SCH ×2 (08:31→16:33)
[2021-08-23 16:44] VITALS: BP 116/72
[2021-08-24] MEDS: HALOPERIDOL 5 MG TABLET PO PRN ×3 (06:27→19:00)
[2021-08-24] MEDS: QUEtiapine FUMARATE 200 MG TABLET PO SCH ×2 (08:18→20:27)
[2021-08-24] MEDS: DIVALPROEX SODIUM 500 MG DR TABLET PO SCH ×3 (08:20→16:43)
[2021-08-24] MEDS: RisperiDONE 3 MG TABLET PO SCH ×2 (08:20→16:43)
[2021-08-24] MEDS: LORazepam 2 MG TABLET PO PRN ×3 (08:20→19:00)
[2021-08-24 16:12] VITALS: BP 127/88
[2021-08-25] MEDS: HALOPERIDOL 5 MG TABLET PO PRN (06:08)
[2021-08-25] MEDS: DIVALPROEX SODIUM 500 MG DR TABLET PO SCH ×3 (08:50→16:23)
[2021-08-25] MEDS: QUEtiapine FUMARATE 200 MG TABLET PO SCH ×2 (08:50→20:06)
[2021-08-25] MEDS: RisperiDONE 3 MG TABLET PO SCH ×2 (08:50→16:23)
[2021-08-25 09:19] VITALS: BP 128/93
[2021-08-25 16:33] VITALS: BP 131/91
[2021-08-26] MEDS: HALOPERIDOL 5 MG TABLET PO PRN ×2 (06:37→14:00)
[2021-08-26] MEDS: QUEtiapine FUMARATE 200 MG TABLET PO SCH ×2 (07:59→20:02)
[2021-08-26] MEDS: RisperiDONE 3 MG TABLET PO SCH ×2 (07:59→17:39)
[2021-08-26] MEDS: DIVALPROEX SODIUM 500 MG DR TABLET PO SCH ×3 (07:59→17:39)
[2021-08-26 08:00] VITALS: BP 119/83
[2021-08-26 10:50] LABS: COVID AG,FIA SOURCE NASAL SWAB
[2021-08-26 16:27] VITALS: BP 121/76
[2021-08-27] MEDS: RisperiDONE 3 MG TABLET PO SCH ×2 (09:14→16:22)
[2021-08-27] MEDS: DIVALPROEX SODIUM 500 MG DR TABLET PO SCH ×3 (09:15→16:22)
[2021-08-27] MEDS: QUEtiapine FUMARATE 200 MG TABLET PO SCH ×2 (09:15→21:14)
[2021-08-27 09:16] VITALS: BP 144/99
[2021-08-27] MEDS: HALOPERIDOL 5 MG TABLET PO PRN ×2 (10:57→16:22)
[2021-08-28] MEDS: ZOLPIDEM TARTRATE 10 MG TABLET PO PRN (01:25)
[2021-08-28] MEDS: HALOPERIDOL 5 MG TABLET PO PRN ×4 (04:06→17:44)
[2021-08-28 08:13] VITALS: BP 110/86
[2021-08-28] MEDS: DIVALPROEX SODIUM 500 MG DR TABLET PO SCH ×3 (08:19→17:44)
[2021-08-28] MEDS: RisperiDONE 3 MG TABLET PO SCH ×2 (08:19→17:44)
[2021-08-28] MEDS: QUEtiapine FUMARATE 200 MG TABLET PO SCH ×2 (08:20→20:28)
[2021-08-28 16:36] VITALS: BP 115/75
[2021-08-29 00:22] VITALS: BP 139/99
[2021-08-29] MEDS: ZOLPIDEM TARTRATE 10 MG TABLET PO PRN (00:22)
[2021-08-29] MEDS: RisperiDONE 3 MG TABLET PO SCH (07:17)
[2021-08-29] MEDS: HALOPERIDOL 5 MG TABLET PO PRN ×2 (07:17→12:17)
[2021-08-29] MEDS: DIVALPROEX SODIUM 500 MG DR TABLET PO SCH ×2 (07:17→12:17)
[2021-08-29] MEDS: QUEtiapine FUMARATE 200 MG TABLET PO SCH (07:17)
[2021-08-29 08:55] VITALS: BP 122/74
== END 2021-08-29 16:30 | disposition home or self-care (01) | DRG 750 ==
LOC: EMS 12:58 → 3EC 08-20 16:28
PROVIDERS: ADMIT Psychiatry & Neurology Psychiatry; ATTEND Psychiatry & Neurology Psychiatry
DX: F25.9 Schizoaffective disorder, unspecified (principal); R45.851 Suicidal ideations; F43.10 Post-traumatic stress disorder, unspecified; G47.00 Insomnia, unspecified; K59.00 Constipation, unspecified
CPT/HCPCS: 71046; 80053; 80061; 80164; 81003; 84702; 85025; 87081; 93005; 99285; G0480; J1630; J2060; 36415-L1; 36415-TC